=== PATIENT | female | born 1975 | race Two or more races ===

== ENCOUNTER 2016-11-22 22:35 | Emergency (ER) | payer MEDICAID, OTHER ==
[~2016-11-22] VITALS: Ht 157.5 cm; Wt 79.4 kg
[2016-11-22 22:57] VITALS: BP 132/86
== END 2016-11-23 00:48 | disposition home or self-care (01) ==
LOC: ER 22:37
DX: H10.212 Acute toxic conjunctivitis, left eye (principal)